=== PATIENT | male | born 1965 | race Caucasian/White ===

== ENCOUNTER 2016-12-28 06:11 | Observation (INO) | payer OTHER ==
[2016-12-23 14:41] LABS: HEMATOCRIT 42.9 % (40.0-51.0); HEMOGLOBIN 14.8 g/dL (13.6-17.8)
[2016-12-23 14:55] LABS: BUN (BLOOD UREA NITROGEN) 13 MG/DL (6-23); CALCIUM, SERUM 9.3 MG/DL (8.5-10.4); CHLORIDE, SERUM 104 MMOL/L (96-112); CO2 (CARBON DIOXIDE) 29 MMOL/L (24-34); GFR AFRICAN AMERICAN 99 ML/MIN (>=60); GFR NON AFRICAN AMERICAN 86 ML/MIN (>=60); GLUCOSE, SERUM 188 MG/DL (60-99); POTASSIUM, SERUM 4.6 MMOL/L (3.5-5.3); SODIUM, SERUM 142 MMOL/L (135-148)
--- NOTE | ~2016-12-28 | PREOPHP ---
PreOp History and Physical [address] [place]. [address] NAME: KIM TROTTER : 61 STATUS : REG [facility]#: [id number] AGE: 51 ADM/REG DATE : 12/28/16 MR#: [id number] REPORT SERV DATE: 12/28/16 DICTATED BY: JOSE FERNANDEZ DATE: 12/28/16 REPORT STATUS : Draft TRANSCRIBED BY: MODAmanda DATE: 12/28/16 CHIEF COMPLAINT: Neck pain, left upper extremity weakness. HISTORY OF PRESENT ILLNESS: The patient is a pleasant 51-year-old gentleman with intractable neck pain and left upper extremity pain and feelings of weakness and progressive signs of myelopathy including worsening balance and dropping objects. After discussion of risks and benefits and progressive neurologic decline, the patient elects to proceed with surgical intervention. REVIEW OF SYSTEMS: The patient denies chest pain, shortness of breath, and bowel or bladder changes. ALLERGIES: DENIED. HOME MEDICATIONS: Include [place]. FAMILY HISTORY: Noncontributory. PAST MEDICAL HISTORY: Includes cardiac disease, diabetes, and hypertension. PHYSICAL EXAMINATION: VITAL SIGNS: Height 5 feet 10 inches, weight 265, BMI 38. GENERAL: The patient is healthy appearing, in no acute distress. PSYCH: Alert and oriented x3. Normal mood and affect. Gait is somewhat unsteady. VASCULAR: No extremity swelling. SPINE: Decreased cervical motion. HEART: Regular rate and rhythm. LUNGS: Clear to auscultation. ABDOMEN: Soft, nontender, nondistended with good bowel sounds. BREASTS: Deferred. RECTAL: Deferred. NEUROLOGIC: Strength in the left upper extremity is 4- out of 5 for the deltoids, biceps, and wrist extensors. Remaining motor strength in the bilateral upper extremities is 5/5. IMAGING: I have reviewed the MRI scan of the cervical spine. The patient has severe degenerative disk disease, C4 through C7 with stenosis and spinal cord compression. ASSESSMENT: C4-7 disk disease and stenosis, spinal cord compression, cervical radiculopathy with upper extremity weakness, cervical myelopathy, failed conservative treatment with progressive neurologic decline. PLAN: The patient presents today for surgical intervention. Consent was obtained. All questions were answered. He is ready to proceed with surgery. JCE/MODL PreOp History and Physical [address] [place]. [address] NAME: KIM TROTTER : 61 STATUS : REG [facility] PAT#: [id number] AGE: 51 ADM/REG DATE : 12/28/16 MR#: [id number] REPORT SERV DATE: 12/28/16 DICTATED BY: JOSE FERNANDEZ DATE: 12/28/16 REPORT STATUS : Draft TRANSCRIBED BY: DAVIDL DATE: 12/28/16 Jose Fernandez DO / [id number] CC: Jose Fernandez DO
--- NOTE | ~2016-12-28 | DS ---
Discharge Summary [id number] [place]. [address] NAME: KIM TROTTER : 61 STATUS : DIS [facility] PAT#: [id number] AGE: 51 ADM/REG DATE : 12/28/16 MR#: [id number] REPORT SERV DATE: 01/07/17 DICTATED BY: JOSE FERNANDEZ DATE: 01/06/17 REPORT STATUS : Draft TRANSCRIBED BY: YIN DATE: 01/06/17 Data Collection from hospitalization DISCHARGE DIAGNOSES: 1. Progressive cervical spondylotic myelopathy. 2. C4 through C7 degenerative disk disease. 3. C4 through C7 severe stenosis with severe spinal cord and nerve root compression. 4. Cervical radiculopathy with upper extremity weakness. 5. Diabetes. 6. Hypertension. 7. Cardiac disease. 8. Obstructive sleep apnea. 9. Bipolar. 10.History of myocardial infarction. CONSULTATIONS: Chantelle Bazan M.D. PROCEDURES PERFORMED: 1. Anterior cervical diskectomy and fusion C4-5, C5-6, and C6-7; anterior cervical plate from [employer] C4 through C7; allograft bone matrix; placement of Medtronic PEEK interbody spacer C4-5, C5-6, and C6-7; operative microscope; neuro monitoring on 12/28/2016. 2. Modified barium swallow study on 01/07/2017. PATHOLOGY: Cervical spine repair - fragmented bone cartilage and soft tissue. No evidence was seen of an infectious or neoplastic process. MEDICATIONS: Lipitor 80 mg daily, Celexa 40 mg daily, Plavix 75 mg daily, Flexeril 10 mg every eight hours as needed, Glucotrol 10 mg twice a day, Eskalith 300 mg twice a day, Ativan 1 mg as needed, Glucophage 1000 mg twice a day, Lopressor 25 mg twice a day, Percocet 5/325 one to two tablets every four hours as needed, and Desyrel 75 mg at bedtime as needed. CONDITION AT DISCHARGE: Stable. DISPOSITION: The patient was discharged home on a mechanical soft diet - 1800-calorie diabetic diet - with activities as instructed. He would follow up with me on 01/12/2017. He would follow up with his primary care physician 7 to 10 days following discharge. HOSPITAL COURSE: This is a 51-year-old man who has had intractable neck pain and left upper extremity pain and feelings of weakness and progressive signs of myelopathy including worsening balance and dropping objects. Treatment options were discussed and it was elected to proceed with surgical intervention. He was admitted to the hospital at this time for further evaluation and treatment. Upon admission, he was taken to the operating room where he underwent the above-mentioned procedure. He tolerated this well, and there were no complications. Postoperatively, he was seen by Dr. Chantelle Bazan. He had been asked to see the patient regarding diabetes mellitus and hypertension. He has had diabetes mellitus for years. He says that he checks Discharge Summary [address] [address] NAME: KIM TROTTER : 61 STATUS : DIS [facility] PAT#: [id number] AGE: 51 ADM/REG DATE : 12/28/16 MR#: [id number] REPORT SERV DATE: 01/07/17 DICTATED BY: JOSE FERNANDEZ DATE: 01/06/17 REPORT STATUS : Draft TRANSCRIBED BY: YIN DATE: 01/06/17 his blood glucose levels four times a day, but does not follow a diabetic diet. He said that he uses his 's insulin when his blood glucose level was elevated. Hemoglobin A1c was going to be checked. He was going to undergo diabetes education. Level 2 sliding scale insulin was provided. On postop day #1, he was up sitting in a chair. He said he had some difficulty swallowing. He said that he has had his esophagus stretched in the past. Hemoglobin A1c was 8.7. Nocturnal O2 was going to be provided as he does have obstructive sleep apnea. His insulin was adjusted. Speech/Language Pathology performed a bedside swallow study. The patient had a significant amount of swelling on the outside of his neck with a great deal of pain swallowing. He was evaluated by Physical Therapy. He underwent diabetes education. On 12/30/2016, modified barium swallow study was performed. His pain was controlled. His drain was removed. Hydralazine was going to be provided as needed for hypertension. Ativan was being given as needed. He continued to undergo diabetes education. No aspiration or penetration had been seen on a swallow evaluation. He was going to be placed on a mechanical soft diet with chopped meats with gravy and thin liquids. Discharge planning was performed. On 12/31/2016, his pain was under much better control. He was wanting to go home. He was tolerating his diet. Metformin was resumed. Glipizide was continued. NovoLog sliding scale insulin continued at this time. Discharge instructions were given. He met all of his goals of Physical Therapy. Due to his improved and stable condition, he was discharged home with the above-stated instructions. Information collected by: Dawna Quevedo I submit the above information as my discharge summary. TG/MODL Jose Fernandez DO / [id number] CC: DO Mj Brown MD
--- NOTE | ~2016-12-28 | OP ---
Record Of Operation [facility] [address] [place]. [address] NAME: KIM TROTTER : 61 STATUS : ADM [facility] PAT#: [id number] AGE: 51 ADM/REG DATE : 12/28/16 MR#: [id number] REPORT SERV DATE: 12/28/16 DICTATED BY: JOSE FERNANDEZ DATE: 12/28/16 REPORT STATUS : Draft TRANSCRIBED BY: MODL DATE: 12/28/16 DATE OF PROCEDURE: 12/28/2016 PREOPERATIVE DIAGNOSES: 1. Progressive cervical spondylotic myelopathy. 2. C4 through C7 degenerative disk disease. 3. C4 through C7 severe stenosis, with severe spinal cord, and nerve root compression. 4. Cervical radiculopathy with upper extremity weakness. POSTOPERATIVE DIAGNOSES: 1. Progressive cervical spondylotic myelopathy. 2. C4 through C7 degenerative disk disease. 3. C4 through C7 severe stenosis, with severe spinal cord, and nerve root compression. 4. Cervical radiculopathy with upper extremity weakness. PROCEDURE: 1. Anterior cervical diskectomy and fusion, C4-5, C5-6, and C6-7. 2. Anterior cervical plate from [employer], C4 through C7. 3. Allograft bone matrix. 4. Placement of Medtronic PEEK interbody spacer, C4-5, C5-6, and C6-7. 5. Operative microscope. 6. Neuromonitoring. SURGEON: Jose Fernandez DO. ANESTHESIA: General ESTIMATED BLOOD LOSS: 45 mL. COMPLICATIONS: None. INDICATIONS: The patient is a pleasant 51-year-old, with progressive neurologic deficit from cervical spondylotic myelopathy, upper extremity weakness from cervical radiculopathy caused by severe spinal cord and nerve root compression. After failing conservative treatment, and having progressive neurologic decline, he elected to proceed with surgical intervention. PROCEDURE IN DETAIL: I identified the patient in the holding area, consent was obtained, went to the operating room, underwent general anesthesia with endotracheal intubation, prepped and draped in the usual sterile fashion, operative safety pause was performed, and then we proceeded. An oblique incision was made over the left side of the neck, taken down through the platysma to the anterior aspect of the spine, longus colli was elevated. Self- retaining retractors were placed. [place] pin was placed in vertebral body. The operative level was verified with lateral fluoroscopic image. Distraction was applied across pins at C4 and C5. Operative microscope was brought in. A knife was used to perform an annulotomy. Free disk material was removed with pituitary. Anterior osteophytes were removed with Kerrison. Posterior osteophytes and uncinate processes were taken down with a vern bur. Record Of Operation [facility] [address] [place]. [address] NAME: KIM TROTTER : 61 STATUS : ADM [facility] PAT#: [id number] AGE: 51 ADM/REG DATE : 12/28/16 MR#: [id number] REPORT SERV DATE: 12/28/16 DICTATED BY: JOSE FERNANDEZ DATE: 12/28/16 REPORT STATUS : Draft TRANSCRIBED BY: MODL DATE: 12/28/16 There was severe spinal cord compression from the posterior osteophytes. Foraminotomy was performed with a Kerrison. Endplates were prepared with curettes, rasp, and a cutting bur. Trial spacer was implanted, then Medtronic PEEK interbody spacer, with allograft bone matrix was placed at C4-C5, this was repeated again at C5-6 and C6-C7. [place] pins were removed. Anterior cervical plate from [employer]tr[employer] was placed C4 through C7. Screws were placed, final tightened. Locking mechanisms were engaged. Final AP and lateral images were obtained. Subplatysmal drain was placed. Layered closure was performed. Sterile dressings were applied. The patient awoke, extubated, and taken to the recovery room in stable condition. OPERATIVE FINDINGS: Severe stenosis with severe spinal cord compression. No sustained neuromonitoring alerts. I did discuss with the patient's immediately in the recovery room that there was a very severe both foraminal as well as central stenosis. I have removed as much as possible the bone spurs from an anterior approach, it is possible that given the severe nature of his condition that an additional posterior decompression and possible fusion procedure could be needed in the future, but we will stage that, see how he does with this anterior approach alone, and continue to monitor his symptoms to determine if any additional procedure will be necessary in the future. JON/YIN Jose Fernandez DO / [id number] CC: Jose Fernandez DO
[~2016-12-28 06:11] MED LIST: ATV1 PO; CELEXA40 MG PO; ESKALITH PO; GLUCOPHAGE1000 MG PO; GLUCOTRO10 PO; GLUCPH PO; LIPITOR80 MG PO; LOP25 PO; PLAVIX PO; PRILO PO; SINGULAIR1 PO; SPIRIVA INH; TRAZ50 PO; ZESTORETIC1 TA1 PO
[2016-12-29 04:53] LABS: CALCIUM, SERUM 8.7 MG/DL (8.5-10.4); CHLORIDE, SERUM 101 MMOL/L (96-112); CO2 (CARBON DIOXIDE) 30 MMOL/L (24-34); CREATININE 1.07 MG/DL (0.70-1.30); GFR AFRICAN AMERICAN 91 ML/MIN (>=60); GFR NON AFRICAN AMERICAN 79 ML/MIN (>=60); GLUCOSE, SERUM 214 MG/DL (60-99); POTASSIUM, SERUM 4.5 MMOL/L (3.5-5.3); SODIUM, SERUM 139 MMOL/L (135-148)
[2016-12-29 04:55] LABS: BUN (BLOOD UREA NITROGEN) 9 MG/DL (6-23)
[2016-12-30 04:28] LABS: BASOPHILS 0 %; EOSINOPHILS 0 %; HEMATOCRIT 41.4 % (40.0-51.0); HEMOGLOBIN 14.2 g/dL (13.6-17.8); IMMATURE GRANULOCYTES 0.3 %; IMMATURE GRANULOCYTES ABSOLUTE 0.04 10/3/uL (0.0-0.11); LYMPHOCYTES 6.6 %; LYMPHOCYTES ABSOLUTE 0.82 10/3/uL (0.67-4.30); MEAN CORPUS HGB CONC 34.3 g/dL (32.0-36.0); MEAN CORPUSCULAR HEMOGLOB 29.3 pg (26.0-34.0); MEAN CORPUSCULAR VOLUME 85.5 fL (80-100); MEAN PLATELET VOLUME 11.2 fL (9.2-13.0); MONOCYTES 2.6 %; MONOCYTES ABSOLUTE 0.32 10/3/uL (0.21-1.20); NEUTROPHILS 90.5 %; NEUTROPHILS ABSOLUTE 11.23 10/3/uL (2.02-8.40); PLATELET COUNT 268 10/3/uL (150-400); RBC DISTRIBUTION WIDTH 13.2 % (12.0-16.0); RED CELL COUNT 4.84 10/6/uL (4.7-6.1); WHITE BLOOD CELLS 12.4 10/3/uL (4.5-10.5)
[2016-12-30 04:30] LABS: MANUAL DIFF NO %
[2016-12-30 04:39] LABS: BUN (BLOOD UREA NITROGEN) 11 MG/DL (6-23); CALCIUM, SERUM 8.8 MG/DL (8.5-10.4); CHLORIDE, SERUM 103 MMOL/L (96-112); CREATININE 1.02 MG/DL (0.70-1.30); GFR AFRICAN AMERICAN 97 ML/MIN (>=60); GFR NON AFRICAN AMERICAN 84 ML/MIN (>=60); POTASSIUM, SERUM 4.3 MMOL/L (3.5-5.3); SODIUM, SERUM 138 MMOL/L (135-148)
[2016-12-30 04:41] LABS: CO2 (CARBON DIOXIDE) 25 MMOL/L (24-34); GLUCOSE, SERUM 340 MG/DL (60-99)
[2016-12-31 04:05] LABS: HEMATOCRIT 40.2 % (40.0-51.0); MEAN CORPUS HGB CONC 34.8 g/dL (32.0-36.0); MEAN CORPUSCULAR HEMOGLOB 29.8 pg (26.0-34.0); MEAN CORPUSCULAR VOLUME 85.5 fL (80-100); MEAN PLATELET VOLUME 11.3 fL (9.2-13.0); PLATELET COUNT 305 10/3/uL (150-400); RBC DISTRIBUTION WIDTH 13.1 % (12.0-16.0)
[2016-12-31 04:07] LABS: MANUAL DIFF YES %
[2016-12-31 04:17] LABS: CALCIUM, SERUM 8.6 MG/DL (8.5-10.4); CHLORIDE, SERUM 104 MMOL/L (96-112); CO2 (CARBON DIOXIDE) 28 MMOL/L (24-34); GFR AFRICAN AMERICAN 88 ML/MIN (>=60); GFR NON AFRICAN AMERICAN 76 ML/MIN (>=60); GLUCOSE, SERUM 289 MG/DL (60-99); POTASSIUM, SERUM 4.2 MMOL/L (3.5-5.3); SODIUM, SERUM 142 MMOL/L (135-148)
[2016-12-31 04:21] LABS: BUN (BLOOD UREA NITROGEN) 20 MG/DL (6-23)
[2016-12-31 05:22] LABS: BAND NEUTROPHILS 2 %; LYMPHOCYTES 7 %; LYMPHOCYTES ABSOLUTE (CALC) 0.98 10/3/uL (0.67-4.30); MONOCYTES 8 %; MONOCYTES ABSOLUTE (CALC) 1.12 10/3/uL (0.21-1.20); SEGMENTED NEUTROPHIL (0) 83 %; TOTAL NUCLEATED CELLS 100
[2016-12-31 05:23] LABS: PLATELET ESTIMATE ADQ (ADEQUATE); RBC MORPHOLOGY NORM (NORMAL)
[2016-12-31] MEDS ORDERED: PCET PO (13:27)
[2016-12-31] MEDS ORDERED: FLEX PO (13:27)
== END 2016-12-31 14:39 | disposition home or self-care (01) ==
LOC: SDC 06:11 → SDC/OF 11:51 → 3SO 13:45
PROVIDERS: Nurse Practitioner; Orthopaedic Surgery
PROC: 0RG10J0 Fusion of Cervical Vertebral Joint with Synthetic Substitute, Anterior Approach, Anterior Column, Open Approach (ICD-10-PCS; 2016-12-28)
PROC: 0RB30ZZ Excision of Cervical Vertebral Disc, Open Approach (ICD-10-PCS; 2016-12-28)
PROC: 0RG20A0 Fusion of 2 or more Cervical Vertebral Joints with Interbody Fusion Device, Anterior Approach, Anterior Column, Open Approach (ICD-10-PCS; principal; 2016-12-28 08:00)
PROC: 0RG20K0 Fusion of 2 or more Cervical Vertebral Joints with Nonautologous Tissue Substitute, Anterior Approach, Anterior Column, Open Approach (ICD-10-PCS; 2016-12-28 08:00)
DX: M50.121 Cervical disc disorder at C4-C5 level with radiculopathy (principal); M50.122 Cervical disc disorder at C5-C6 level with radiculopathy; M50.123 Cervical disc disorder at C6-C7 level with radiculopathy; M48.02 Spinal stenosis, cervical region; M47.12 Other spondylosis with myelopathy, cervical region; E11.65 Type 2 diabetes mellitus with hyperglycemia; G47.33 Obstructive sleep apnea (adult) (pediatric); I25.10 Atherosclerotic heart disease of native coronary artery without angina pectoris; F31.9 Bipolar disorder, unspecified; J44.9 Chronic obstructive pulmonary disease, unspecified; E66.9 Obesity, unspecified; I25.2 Old myocardial infarction; F43.10 Post-traumatic stress disorder, unspecified; I11.9 Hypertensive heart disease without heart failure; Z79.899 Other long term (current) drug therapy; Z90.49 Acquired absence of other specified parts of digestive tract; Z90.89 Acquired absence of other organs; Z98.890 Other specified postprocedural states
CPT/HCPCS: 74230; 80048; 82962; 83036; 83735; 85014; 85018; 85025; 87641; 88304; 88311; 92610-GN; 92611-GN; 93005; 96374; 96375; 96376; 97116-GP; 97162-GP; A9270-GY; C1713; G0378; J0690; J2250; J2270; J2370; J2710; J3010